=== PATIENT | female | born 1975 | race Caucasian/White ===

== ENCOUNTER 2016-12-03 16:52 | Outpatient (CLI) | payer BC ==
[~2016-12-03] VITALS: Ht 165.1 cm; Wt 78.6 kg
[2016-12-03] MEDS ORDERED: PRENATAL (17:51)
[2016-12-03 18:00] VITALS: BP 134/81; PULSE 85; TEMP 97.6
[2016-12-03 18:32] LABS: PH 7 (5-8); URINE APPEARANCE Clear; URINE BACTERIA None Seen /hpf; URINE BILIRUBIN Negative (NEGATIVE); URINE BLOOD Negative (NEGATIVE); URINE COLOR Yellow; URINE GLUCOSE Negative (NEGATIVE); URINE KETONE Trace (NEGATIVE); URINE RBC 0-2 /hpf; URINE UROBILINOGEN Negative (NEGATIVE)
[2016-12-03 18:32] LABS: BASO % 0.5 % (0.0-2.0); EOS # 0.1 (0.0-0.7); GRAN # 5.1 (1.4-6.5); GRAN % 62.7 % (42.2-75.2); HEMOGLOBIN 12.3 g/dl (12.5-16.0); LYMPH # 2.4 (1.2-3.4); MEAN CELL VOLUME 86 fl (80.0-100.0); MEAN CORPUSCULAR HEMOGLOBIN 29 pg (27.0-31.0); MEAN CORPUSCULAR HGB CONC 33 g/dl (33.0-37.0); MEAN PLATELET VOLUME 12.4 fl (7.4-10.4); MONO # 0.5 (0.1-0.6); MONO % 6.4 % (1.7-9.3); PLATELET COUNT 226 K/mm3 (130-400); RED BLOOD COUNT 4.31 M/mm3 (4.10-5.30); REDCELL DISTRIBUTION WIDTH-CV 12.9 % (11.5-14.5); WHITE BLOOD COUNT 8.1 K/mm3 (4.8-10.8)
[2016-12-03 18:37] LABS: HEMATOCRIT 36.9 % (37.0-47.0)
[2016-12-03 18:46] LABS: ADJUSTED CALCIUM 9.6 mg/dL (8.4-10.2); ALBUMIN 3.3 gm/dL (3.5-5.0); BILIRUBIN,TOTAL 1.1 mg/dL (0.0-1.0); CREATININE, serum 0.6 mg/dL (0.52-1.25); POTASSIUM 3.6 mmol/L (3.4-5.0); TOTAL PROTEIN 6.4 gm/dL (6.4-8.2)
[2016-12-03 18:49] VITALS: BP 132/79; PULSE 83
== END 2016-12-03 19:10 | disposition home or self-care (01) ==
LOC: LDRO 16:52 → LDR 17:59 → LDRO 19:10 → LDR 19:10 → LDRO 12-16 09:00
PROVIDERS: Student in an Organized Health Care Education/Training Program
DX: O26.893 Other specified pregnancy related conditions, third trimester (principal); Z3A.38 38 weeks gestation of pregnancy
CPT/HCPCS: OP

== ENCOUNTER 2016-12-14 07:37 | Inpatient (IN) | payer BC ==
[~2016-12-14] VITALS: Ht 12.7 cm; Wt 78.6 kg
[2016-12-14] VITALS (44 sets, daily range): BP systolic 116–164; BP diastolic 58–94; PULSE 62–113; TEMP 97.9–98.4
[~2016-12-14 07:37] MED LIST: PRENATAL
[2016-12-14 09:59] LABS: BASO % 0.6 % (0.0-2.0); EOS # 0.1 (0.0-0.7); EOS % 1.4 % (0-4.0); GRAN # 4.4 (1.4-6.5); GRAN % 67.1 % (42.2-75.2); HEMATOCRIT 37.3 % (37.0-47.0); HEMOGLOBIN 12.4 g/dl (12.5-16.0); LYMPH # 1.7 (1.2-3.4); LYMPH % 25.1 % (20.0-51.0); MEAN CELL VOLUME 86 fl (80.0-100.0); MEAN CORPUSCULAR HEMOGLOBIN 29 pg (27.0-31.0); MEAN CORPUSCULAR HGB CONC 33 g/dl (33.0-37.0); MEAN PLATELET VOLUME 12.7 fl (7.4-10.4); MONO # 0.4 (0.1-0.6); MONO % 5.3 % (1.7-9.3); PLATELET COUNT 221 K/mm3 (130-400); RED BLOOD COUNT 4.34 M/mm3 (4.10-5.30); REDCELL DISTRIBUTION WIDTH-CV 13.4 % (11.5-14.5); WHITE BLOOD COUNT 6.6 K/mm3 (4.8-10.8)
[2016-12-15 03:15] VITALS: BP 125/75; PULSE 85; TEMP 97.9
[2016-12-15 08:19] VITALS: BP 116/65; PULSE 84; TEMP 98.3
[2016-12-15 11:25] VITALS: BP 133/74; PULSE 101; TEMP 98.1
[2016-12-15 16:12] VITALS: BP 123/69; PULSE 88; TEMP 98
[2016-12-15 18:30] VITALS: BP 132/68; PULSE 90; TEMP 98
[2016-12-16 07:30] VITALS: BP 122/72; PULSE 76; TEMP 97.6
[2016-12-16] MEDS ORDERED: PERCOCET 325 MG1 TA2 PO (08:45)
[2016-12-16] MEDS ORDERED: MOTRIN 600600 MG/TAB PO (08:45)
== END 2016-12-16 13:16 | disposition home or self-care (01) | DRG 775 ==
LOC: LDRO 07:37 → OB 08:28 → LDR 08:28 → OB 19:20
PROVIDERS: Obstetrics & Gynecology
PROC: 10E0XZZ Delivery of Products of Conception, External Approach (ICD-10-PCS; principal; 2016-12-14)
PROC: 0DQR0ZZ Repair Anal Sphincter, Open Approach (ICD-10-PCS; 2016-12-14)
DX: O99.824 Streptococcus B carrier state complicating childbirth (principal); O70.21 Third degree perineal laceration during delivery, IIIa; Z3A.39 39 weeks gestation of pregnancy; Z37.0 Single live birth
CPT/HCPCS: J0690; J2590; J2795; J7120